=== PATIENT | female | born 1950 | race Caucasian/White ===

== ENCOUNTER → 2023-09-18 08:40 | Outpatient (REF) | payer MEDICARE, SELFPAY | LOC: HWRCS 08:40 | PROVIDERS: ATTENDING PHYSICIAN Internal Medicine | DX: R01.1 Cardiac murmur, unspecified (principal); R06.09 Other forms of dyspnea; I10 Essential (primary) hypertension; R00.0 Tachycardia, unspecified | CPT/HCPCS: 93306 ==

== ENCOUNTER → 2023-09-19 08:06 | Outpatient (REF) | payer MEDICARE, SELFPAY | LOC: DHCBC/DCA 08:06 | PROVIDERS: ATTENDING PHYSICIAN Internal Medicine; FAMILY PHYSICIAN Pediatrics Pediatric Endocrinology | DX: R01.1 Cardiac murmur, unspecified (principal); R06.09 Other forms of dyspnea; I10 Essential (primary) hypertension; R00.0 Tachycardia, unspecified | CPT/HCPCS: 78452; 93017; A9500; J2785 ==

== ENCOUNTER → 2023-09-25 09:05 | Outpatient (REF) | payer MEDICARE, SELFPAY | LOC: RCS 09:05 | PROVIDERS: ATTENDING PHYSICIAN Internal Medicine | DX: R06.09 Other forms of dyspnea (principal); R00.0 Tachycardia, unspecified | CPT/HCPCS: 93225; 93226 ==